=== PATIENT | female | born 1950 | race Asian ===

== ENCOUNTER → 2018-04-21 | Day surgery (SDC) | payer OTHER ==
[2018-04-19 11:00] LABS: BASOPHILS # (AUTO) 0.1 (0.0-0.1); BASOPHILS % 0.6 % (0.0-1.0); EOSINOPHILS # (AUTO) 0.2 (0.0-0.4); EOSINOPHILS % 2.6 % (0.0-6.0); HEMATOCRIT 39.2 % (34.2-44.1); HEMOGLOBIN 12.7 g/dL (12.0-16.0); LYMPHOCYTES # (AUTO) 1.5 (1.0-3.2); LYMPHOCYTES % 16.6 % (18.0-39.1); MEAN CORPUSCULAR HEMOGLOBIN 30.1 pg (28-32); MEAN CORPUSCULAR HGB CONC 32.4 g/dL (31-35); MEAN CORPUSCULAR VOLUME 92.9 fL (81-99); MONOCYTES # (AUTO) 0.5 (0.2-0.8); MONOCYTES % 5.5 % (4.4-11.3); NEUTROPHILS # (AUTO) 6.5 (2.1-6.9); NEUTROPHILS % 74.5 % (38.7-80.0); PLATELET COUNT 243 x10e3/uL (140-360); RED BLOOD COUNT 4.22 x10e6/uL (3.6-5.1); RED CELL DISTRIBUTION WIDTH 12.6 % (11.7-14.4)
--- NOTE | 2018-04-19 11:15 | Diagnostic Imaging Report ---
PROCEDURE: Frontal and lateral views of the chest. COMPARISON: None. INDICATIONS: PRE-OP/WRIST SURGERY FINDINGS: Lines/tubes: None. Lungs: The lungs are well inflated and clear. There is no evidence of pneumonia or pulmonary edema. Left apical hyperdense nodules are either within soft tissues or are calcified granulomas. Biapical scarring. Pleura: There is no pleural effusion or pneumothorax. Heart and mediastinum: The heart and the mediastinum are normal. Bones: No acute bony abnormality. IMPRESSION: 1. No acute cardiopulmonary disease. Dictated by: Librado Mathew M.D. on 04/19/2018 at 11:21 Electronically approved by: Librado Mathew M.D. on 04/19/2018 at 11:21
[~2018-04-21] MED LIST: BACITRACIN 50,000 UNIT VIAL ONE; BUPIVACAINE HCL 0.5% INJ 30 ML VIAL INJ ONE; CEFAZOLIN SOD 2 GM/D5W 50ML 50 ML IV ONE; DEXAMETHASONE SOD PHOS INJ 4 MG/ML VIAL ONE; FENTANYL CITRATE/PF 100MCG/2 ML INJ ONE; KETOROLAC TROMETHAMINE 30 MG/ML VIAL ONE; LABETALOL HCL 20 ML ONE; LIDOCAINE HCL 2% LOCAL INJ 5 ML SDV VIAL INJ ONE; ONDANSETRON HCL INJ 2 MG/ML VIAL ONE; PROPOFOL IV EMULSION 10 MG/ML 20 ML VIAL ONE; SEVOFLURANE INHAL SOLN 250 ML PEN BTL ONE
[2018-04-21 12:54] VITALS: BP 151/75
--- NOTE | 2018-04-30 15:21 | Operative Report ---
DATE OF PROCEDURE: April 21, 2018 PREOPERATIVE DIAGNOSIS: Displaced right distal radius fracture. POSTOPERATIVE DIAGNOSIS: Displaced right distal radius fracture. PROCEDURE PERFORMED: Closed reduction and percutaneous pinning of the right distal radius fracture. CROP SUPERVISOR: None. ANESTHESIA: General endotracheal intubation anesthesia. IV FLUIDS: Per the anesthesia record. DESCRIPTION OF PROCEDURE: Ms. Flores was taken to the operating room and placed in the supine position on the operating table. Following induction of general anesthesia as well as endotracheal intubation, the patient's right upper extremity was examined under anesthesia. She was found to have swelling and bruising about the right wrist joint. Fluoroscopic evaluation of the right wrist demonstrated a displaced and angulated distal radius fracture. The patient's upper extremity prepped and draped in the standard surgical fashion. The case was begun by manipulating the wrist in a closed fashion. This resulted in acceptable realignment of the patient's wrist injury. Two 0.062 K-wires were inserted from distal to proximal transfixing the fracture in its reduced position. The position of those pins as well as reduction of the fracture was again assessed using fluoroscopy and found to be appropriate. The pin sites were dressed sterilely. The patient was placed in an appropriate sugar tong splint. The patient was awakened and taken to the postanesthesia care unit in stable condition. Job#: [id number]
== END | disposition home or self-care (01) ==
LOC: OR 05:34
PROVIDERS: ATTEND Specialist
DX: S52.531A Colles' fracture of right radius, initial encounter for closed fracture (principal); W10.8XXA Fall (on) (from) other stairs and steps, initial encounter; Y93.01 Activity, walking, marching and hiking; Y92.008 Other place in unspecified non-institutional (private) residence as the place of occurrence of the external cause; Z01.810 Encounter for preprocedural cardiovascular examination; Z01.812 Encounter for preprocedural laboratory examination; Z01.818 Encounter for other preprocedural examination
CPT/HCPCS: 25606; 36415; 71046; 85025; 93005; J1100; J1885; J2001; J2405; J3490; 76000